=== PATIENT | male | born 1980 | race Caucasian/White ===

== ENCOUNTER 2020-12-26 12:18 | Inpatient (IN) | payer OTHER, SELFPAY ==
[~2020-12-26 12:18] MED LIST: Dexamethasone 20 MG/5 ML VIAL ONE; Glycopyrrolate 0.2 MG/ML 5 ML SYRINGE ONE; Iopamidol-370 76% 500 ML 1 ML ONE; Ketorolac Tromethamine 30 MG/ML VIAL ONE; Lidocaine 1% PF 5 ML VIAL ONE; Ondansetron PF 4 MG/2 ML Vial ONE; PHENYLEPHRINE-NS 100 MCG/ML 10 ML SYRINGE ONE; PROPOFOL 200 MG/20 ML VIAL ONE; Rocuronium Bromide 10 MG/ML (10ML VIAL) ONE
[2020-12-26] MEDS ORDERED: Fentanyl 100 MCG/2 ML VIAL ONE ×2 (12:27→22:44)
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
[2020-12-26] MEDS ORDERED: Boostrix 0.5 ML (Tdap) VIAL ONE (13:08)
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
[2020-12-26 13:50] LABS: Hemoglobin 11.7 g/dL (14.0-18.0); Mean Corpuscular HGB CONC 33.7 g/dL (32.0-36.0); Mean Corpuscular Hemoglobin 31.5 pg (27.0-31.0); Mean Corpuscular Volume 93.4 fL (78.0-98.0); Platelet Count 396 thou/uL (130-400); RBC Distribution Width 12.4 % (11.5-14.5); Red Blood Cell (RBC) Count 3.72 mill/uL (4.70-6.10)
[2020-12-26 13:55] LABS: INR-International Normal Ratio 1.2; PTT 23.3 sec (22.9-36.1); Prothrombin Time 15.8 sec (12.0-14.7)
[2020-12-26] MEDS ORDERED: Dextrose 50% Abboject 50 ML SYRINGE SLOW IVP PRN (13:59)
[2020-12-26] MEDS ORDERED: Ondansetron PF 4 MG/2 ML Vial IVP PRN (13:59)
[2020-12-26] MEDS ORDERED: Dextrose 5% in Water 1,000 ML IV PRN (13:59)
[2020-12-26] MEDS ORDERED: Sodium Chloride 0.9% 1,000 ML IV SCH (14:00)
[2020-12-26] MEDS ORDERED: traMADol HCl 50 MG TAB PO PRN ×2 (14:01)
[2020-12-26] MEDS ORDERED: Ketorolac Tromethamine 30 MG/ML VIAL ONE (14:06)
[2020-12-26 14:08] LABS: Band 38 % (5-11); Lymphocytes 2 % (21-51); MDiff Complete? YES; Metamyelocyte 1 % (0-0); Monocytes 7 % (0-10); Neutrophil 49 % (42-75); Platelet Morphology Comment Appears Adequate; RBC Morphology Normal; Reactive Lymphocytes 3 % (0-10)
[2020-12-26 14:12] LABS: Lactic Acid 1.1 mmol/L (0.5-2.2)
[2020-12-26 14:15] LABS: ALT (SGPT) 395 U/L (8-55); AST (SGOT) 377 U/L (5-34); Albumin 3.6 g/dL (3.5-5.0); Alkaline Phosphatase 63 U/L (40-110); Anion Gap 13 mmol/L (10-20); BUN (Urea Nitrogen) 17 mg/dL (8.9-20.6); Bilirubin, Total 0.7 mg/dL (0.2-1.2); Calc. Creatinine Clearance 0 mL/min (70-130); Calcium 7.7 mg/dL (7.8-10.44); Carbon Dioxide 21 mmol/L (22-29); Chloride 108 mmol/L (98-107); Globulin 2.2 g/dL (2.4-3.5); Glucose 125 mg/dL (70-105); Magnesium 1.8 mg/dL (1.6-2.6); Phosphorus 3.4 mg/dL (2.3-4.7); Potassium 3.6 mmol/L (3.5-5.1); Protein, Total 5.8 g/dL (6.0-8.3); Sodium 138 mmol/L (136-145)
[2020-12-26 14:22] LABS: Bacteria/HPF None Seen HPF (None Seen); Bilirubin Negative (Negative); Blood, Urine 2+ (Negative); Clarity Clear (Clear); Glucose, Urine (Dipstick) Normal (Negative); Ketone, Urine Negative (Negative); Leukocyte Negative Leu/uL (Negative); Nitrite Negative (Negative); Protein, Urine (Dipstick) 30 mg/dL (Neg-Trace); Specific Gravity, Urine 1.029 (1.002-1.036); Squamous Epithelial 0-3 HPF (0-3); Urobilinogen Normal mg/dL (Less than 2); WBC/HPF 0-3 HPF (0-3); pH, Urine 5.5 (5.0-9.0)
[2020-12-26 14:23] LABS: Sperm/HPF Rare HPF (None Seen)
[2020-12-26 14:47] LABS: Amphetamine Detected (NotDetected); Barbiturates Screen Not Detected (NotDetected); Benzodiazepine Screen Not Detected (NotDetected); Cocaine Metabolite Screen Not Detected (NotDetected); Medtox Control Line Valid? VALID (VALID); Medtox Reader # READER 4; Methadone Not Detected (NotDetected); Methamphetamine Detected (NotDetected); Opiate Screen Not Detected (NotDetected); Oxycodone Screen Not Detected (NotDetected); Phencyclidine (PCP) Not Detected (NotDetected); THC/Cannabinoid Screen Not Detected (NotDetected); Tricyclic Screen Not Detected (NotDetected)
[2020-12-26] MEDS ORDERED: Magnesium 2 GM/50 ML 2 GM in Premix Bag 1 BAG IVPB SCH (15:00)
[2020-12-26] MEDS ORDERED: Potassium Phosphate 15 MMOL in Sodium Chloride 0.9% 250 ML 250 ML IVPB SCH (15:00)
[2020-12-26 16:35] LABS: SARS-CoV-2 NAA Rapid Test Not Detected (NotDetected)
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
[2020-12-26] MEDS: Gabapentin 300 MG CAP PO SCH ×2 (17:42→19:52)
[2020-12-26 18:02] VITALS: BMI 32.1
[2020-12-26] MEDS: Acetaminophen 500 MG TAB PO SCH ×2 (18:54→23:06)
[2020-12-26] MEDS: Famotidine/PF 20 mg/2ml Vial SLOW IVP SCH (19:52)
[2020-12-26] MEDS: Senokot S 8.6-50 MG TAB PO SCH (19:52)
[2020-12-26] MEDS: Morphine 4 MG/ML VIAL SLOW IVP PRN (20:06)
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
[2020-12-27] MEDS ORDERED: CEFAZOLIN 2 GM in Premix Bag 1 BAG IVPB SCH ×2 (02:30→04:00)
[2020-12-27] MEDS ORDERED: Promethazine HCl 25 MG/ML VIAL SLOW IVP PRN (02:42)
[2020-12-27] MEDS ORDERED: Ondansetron HCl/PF 4 MG/2 ML Vial IVP PRN (02:42)
[2020-12-27] MEDS ORDERED: Promethazine HCl 25 MG/ML VIAL IM PRN (02:42)
[2020-12-27] MEDS ORDERED: Fentanyl 100 MCG/2 ML VIAL ONE ×2 (02:50→03:12)
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
[2020-12-27] MEDS: Acetaminophen 500 MG TAB PO SCH ×4 (05:26→23:20)
[2020-12-27] MEDS: Morphine 4 MG/ML VIAL SLOW IVP PRN (05:40)
[2020-12-27 05:47] LABS: #Lymphocytes 0.8 thou/uL (1.20-3.40); #Monocytes 1.1 thou/uL (0.11-0.59); #Neutrophils 15.4 thou/uL (1.40-6.50); %Eosinophils 0.1 % (0.0-10.0); %Lymphocytes 4.8 % (21.0-51.0); %Monocytes 6.1 % (0.0-10.0); Hemoglobin 10.2 g/dL (14.0-18.0); Mean Corpuscular Hemoglobin 31.1 pg (27.0-31.0); Mean Corpuscular Volume 94.4 fL (78.0-98.0); Platelet Count 400 thou/uL (130-400); RBC Distribution Width 12.5 % (11.5-14.5); Red Blood Cell (RBC) Count 3.27 mill/uL (4.70-6.10); White Blood Cell (WBC) Count 17.3 thou/uL (4.8-10.8)
[2020-12-27 06:11] LABS: Anion Gap 11 mmol/L (10-20); BUN (Urea Nitrogen) 24 mg/dL (8.9-20.6); Calc. Creatinine Clearance 159 mL/min (70-130); Calcium 7.8 mg/dL (7.8-10.44); Carbon Dioxide 24 mmol/L (22-29); Chloride 110 mmol/L (98-107); Glucose 145 mg/dL (70-105); Magnesium 2.2 mg/dL (1.6-2.6); Phosphorus 4.3 mg/dL (2.3-4.7); Potassium 4.7 mmol/L (3.5-5.1); Sodium 140 mmol/L (136-145)
--- NOTE | 2020-12-27 09:11 | RAD ---
SIX FLUOROSCOPIC SPOT IMAGES OF THE LEFT KNEE: INDICATION: Operative fixation of the comminuted femoral shaft and distal femoral fracture. COMPARISON: Prior exam dated 12/26/2020. IMPRESSION: There has been interval placement of a long intramedullary iza fixating the patient's femoral shaft, distal femoral metaphyseal region and intercondylar fractures. Fracture alignment is near anatomic. The instrumentation projects in the expected position. Fluoroscopic time was 165.1 seconds. Total exposure was 16.65 mGy. POS: [facility]
--- NOTE | 2020-12-27 09:14 | RAD ---
LEFT ELBOW 2 VIEWS: INDICATION: Operative fixation of a left elbow fracture. FINDINGS: The exam is compared to a prior dated 12/26/2020. IMPRESSION: Since the comparison exam, there has been operative fixation of the distal humeral and comminuted ole cranon fractures. Fracture alignment is near anatomic. Fluoroscopic time is 7 seconds. Total expos ure was 0.25 mGy. POS: [facility]
[2020-12-27] MEDS: Enoxaparin Sodium 30 MG/0.3 ML SYRINGE SC SCH ×2 (09:38→20:01)
[2020-12-27] MEDS: CEFAZOLIN 2 GM in Premix Bag 1 BAG IVPB SCH ×2 (09:38→18:29)
[2020-12-27] MEDS: Famotidine/PF 20 mg/2ml Vial SLOW IVP SCH ×2 (09:39→20:01)
[2020-12-27] MEDS: Polyethylene Glycol 3350 17 GM Packet PO SCH (09:40)
[2020-12-27] MEDS: Senokot S 8.6-50 MG TAB PO SCH ×2 (09:40→20:01)
[2020-12-27] MEDS: Gabapentin 300 MG CAP PO SCH ×3 (10:03→20:00)
[2020-12-27] MEDS ORDERED: traMADol HCl 50 MG TAB PO SCH ×2 (11:00→12:00)
[2020-12-27] MEDS: traMADol HCl 50 MG TAB PO SCH ×2 (15:57→23:20)
[2020-12-27] MEDS ORDERED: FLU VACC QS2020-21(6MOS UP)/PF 60 MCG/0.5 ML SYRINGE IM ONE (18:15)
[2020-12-28] MEDS: CEFAZOLIN 2 GM in Premix Bag 1 BAG IVPB SCH ×3 (03:17→18:15)
[2020-12-28] MEDS: traMADol HCl 50 MG TAB PO SCH ×4 (03:17→21:53)
[2020-12-28 05:17] LABS: #Eosinphils 0.1 thou/uL (0.0-0.7); #Lymphocytes 1.6 thou/uL (1.20-3.40); #Monocytes 2.1 thou/uL (0.11-0.59); #Neutrophils 12.4 thou/uL (1.40-6.50); %Eosinophils 0.5 % (0.0-10.0); %Neutrophils 76.6 % (42.0-75.0); Hemoglobin 8.7 g/dL (14.0-18.0); Mean Corpuscular HGB CONC 33.7 g/dL (32.0-36.0); Mean Corpuscular Volume 95.2 fL (78.0-98.0); Mean Platelet Volume 6.9 fL (7.4-10.4); Platelet Count 328 thou/uL (130-400); RBC Distribution Width 12.5 % (11.5-14.5); Red Blood Cell (RBC) Count 2.72 mill/uL (4.70-6.10); White Blood Cell (WBC) Count 16.2 thou/uL (4.8-10.8)
[2020-12-28] MEDS: Acetaminophen 500 MG TAB PO SCH ×3 (05:31→18:15)
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
[2020-12-28] MEDS: Enoxaparin Sodium 30 MG/0.3 ML SYRINGE SC SCH ×2 (09:14→21:53)
[2020-12-28] MEDS: Polyethylene Glycol 3350 17 GM Packet PO SCH (09:14)
[2020-12-28] MEDS: Senokot S 8.6-50 MG TAB PO SCH ×2 (09:14→21:54)
[2020-12-28] MEDS: Gabapentin 300 MG CAP PO SCH ×3 (09:35→21:54)
[2020-12-28] MEDS: Famotidine 20 MG TAB PO SCH ×2 (09:35→21:54)
[2020-12-28] MEDS: Cyclobenzaprine 10 MG TAB PO PRN (09:51)
[2020-12-28] MEDS ORDERED: PROPOFOL 200 MG/20 ML VIAL ONE (10:53)
[2020-12-28] MEDS ORDERED: Esmolol 100 MG/10 ML VIAL ONE (10:53)
[2020-12-28] MEDS ORDERED: Dexamethasone 20 MG/5 ML VIAL ONE (10:53)
[2020-12-28] MEDS ORDERED: Bupivacaine HCl 0.5%/Epinephrine 1:200,000/PF 30 ml Vial ONE (10:53)
[2020-12-28] MEDS ORDERED: Ondansetron PF 4 MG/2 ML Vial ONE (10:53)
[2020-12-28] MEDS ORDERED: Lidocaine 1% PF 5 ML VIAL ONE (10:53)
[2020-12-28] MEDS ORDERED: Bacitracin Zinc Ointment 30 gm TUBE ONE (13:41)
[2020-12-28] MEDS ORDERED: Sodium Chloride 0.9% 10 ML ONE (13:41)
[2020-12-28] MEDS ORDERED: Bupivacaine PF 0.5% 30 ML VIAL ONE (13:41)
--- NOTE | 2020-12-28 17:27 | RAD ---
Exam: XR Wrist 3 Rt View STANDARD HISTORY: ORIF right wrist COMPARISON: 12/26/2020 FINDINGS/IMPRESSION: 6 intraoperative fluoroscopic images of the right wrist are submitted. Images demonstrate postoperati ve changes related to internal fixation of the comminuted fracture distal right radial metaphysis with intra-articular extension. A volar plate and multiple screws now transfix the fracture. There ar e also several metallic pins transfixing the fracture of the distal right radius. There is improvement in alignment of fracture fragments. Fracture ulnar styloid process is again present. Raina elation with intraoperative findings is recommended. Fluoroscopy: Time-1 minute 37 seconds Dose-0.254 Gy centimeter squared
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
[2020-12-28] MEDS ORDERED: CEFAZOLIN 1 GM VIAL ONE (18:22)
[2020-12-28] MEDS: traMADol HCl 50 MG TAB PO PRN (19:24)
[2020-12-28] MEDS ORDERED: Morphine 4 MG/ML VIAL IV PRN (19:44)
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
[2020-12-29] MEDS: Acetaminophen 500 MG TAB PO SCH ×4 (00:16→18:23)
[2020-12-29] MEDS: CEFAZOLIN 2 GM in Premix Bag 1 BAG IVPB SCH (01:27)
[2020-12-29] MEDS: traMADol HCl 50 MG TAB PO SCH ×4 (05:43→20:59)
--- NOTE | 2020-12-29 07:59 | PRG ---
DATE OF SERVICE: 12/28/2020 SUBJECTIVE: Kiko is a 40-year-old male postop day 2 from an open reduction and internal fixation of the left femoral shaft and open reduction and internal fixation of left elbow and supracondylar fracture. His pain is controlled. He is doing relatively well. OBJECTIVE: VITAL SIGNS: Temperature 98, pulse 108, respiratory rate 20 and unlabored, O2 saturation is 93% on room air, blood pressure 160/79. GENERAL: He is alert, responsive, somnolent at first, but awakens and arouses easily, nonfocal. EXTREMITIES: Neurovascular status is good. Capillary refill being brisk in the left upper extremity and left foot. IMPRESSION: 40-year-old male, postop day 2, left femoral nail and left elbow open reduction and internal fixation. PLAN: Continue current care. DISPOSITION: Per Trauma Team. Job ID: [id number]
[2020-12-29] MEDS ORDERED: Metoprolol Tartrate 100 MG TAB PO SCH (08:30)
[2020-12-29] MEDS: Polyethylene Glycol 3350 17 GM Packet PO SCH (08:33)
[2020-12-29] MEDS: Senokot S 8.6-50 MG TAB PO SCH ×2 (08:33→20:58)
[2020-12-29] MEDS: Cyclobenzaprine 10 MG TAB PO PRN (08:33)
[2020-12-29] MEDS: Famotidine 20 MG TAB PO SCH ×2 (08:33→20:58)
[2020-12-29] MEDS: traMADol HCl 50 MG TAB PO PRN ×2 (08:34→15:00)
[2020-12-29] MEDS: Gabapentin 300 MG CAP PO SCH ×3 (08:34→20:58)
[2020-12-29] MEDS: Enoxaparin Sodium 30 MG/0.3 ML SYRINGE SC SCH ×2 (08:35→20:58)
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
[2020-12-29] MEDS: Lisinopril 10 MG TAB PO SCH (10:33)
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
[2020-12-30] MEDS: Acetaminophen 500 MG TAB PO SCH ×5 (00:24→23:19)
[2020-12-30] MEDS: traMADol HCl 50 MG TAB PO SCH ×5 (03:53→21:15)
[2020-12-30] MEDS: traMADol HCl 50 MG TAB PO PRN (04:23)
[2020-12-30] MEDS: Lisinopril 10 MG TAB PO SCH (09:40)
[2020-12-30] MEDS: Senokot S 8.6-50 MG TAB PO SCH ×2 (09:40→21:11)
[2020-12-30] MEDS: Polyethylene Glycol 3350 17 GM Packet PO SCH (09:40)
[2020-12-30] MEDS: Enoxaparin Sodium 30 MG/0.3 ML SYRINGE SC SCH ×2 (09:40→21:10)
[2020-12-30] MEDS: Gabapentin 300 MG CAP PO SCH ×3 (09:41→21:11)
[2020-12-30] MEDS: Ibuprofen 600 MG TAB PO SCH ×3 (12:56→23:20)
[2020-12-30] MEDS: Cyclobenzaprine 10 MG TAB PO PRN (12:56)
[2020-12-31] MEDS: Ibuprofen 600 MG TAB PO SCH ×4 (05:06→23:49)
[2020-12-31] MEDS: traMADol HCl 50 MG TAB PO SCH ×4 (05:06→22:02)
[2020-12-31] MEDS: Acetaminophen 500 MG TAB PO SCH ×4 (05:07→23:49)
[2020-12-31 05:28] LABS: #Basophils 0.1 thou/uL (0.0-0.2); #Eosinphils 0.2 thou/uL (0.0-0.7); #Lymphocytes 2.8 thou/uL (1.20-3.40); #Monocytes 1.5 thou/uL (0.11-0.59); #Neutrophils 7.5 thou/uL (1.40-6.50); %Basophils 0.6 % (0.0-1.0); %Lymphocytes 22.8 % (21.0-51.0); %Monocytes 12.7 % (0.0-10.0); %Neutrophils 61.9 % (42.0-75.0); Hemoglobin 8.3 g/dL (14.0-18.0); Mean Corpuscular HGB CONC 31.4 g/dL (32.0-36.0); Mean Corpuscular Hemoglobin 29.6 pg (27.0-31.0); Mean Corpuscular Volume 94.3 fL (78.0-98.0); Mean Platelet Volume 6.3 fL (7.4-10.4); Platelet Count 541 thou/uL (130-400); RBC Distribution Width 12.6 % (11.5-14.5); White Blood Cell (WBC) Count 12.1 thou/uL (4.8-10.8)
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
[2020-12-31 05:48] LABS: Anion Gap 14 mmol/L (10-20); BUN (Urea Nitrogen) 17 mg/dL (8.9-20.6); Calc. Creatinine Clearance 244 mL/min (70-130); Calcium 8.2 mg/dL (7.8-10.44); Carbon Dioxide 27 mmol/L (22-29); Chloride 100 mmol/L (98-107); Glucose 103 mg/dL (70-105); Magnesium 1.9 mg/dL (1.6-2.6); Phosphorus 4.7 mg/dL (2.3-4.7); Potassium 4.3 mmol/L (3.5-5.1); Sodium 137 mmol/L (136-145)
[2020-12-31] MEDS: Gabapentin 300 MG CAP PO SCH ×3 (08:23→19:57)
[2020-12-31] MEDS: Senokot S 8.6-50 MG TAB PO SCH ×2 (08:24→19:57)
[2020-12-31] MEDS: Cyclobenzaprine 10 MG TAB PO PRN (08:24)
[2020-12-31] MEDS: Lisinopril 10 MG TAB PO SCH (08:25)
[2020-12-31] MEDS: Enoxaparin Sodium 30 MG/0.3 ML SYRINGE SC SCH ×2 (08:25→19:56)
[2020-12-31] MEDS: Polyethylene Glycol 3350 17 GM Packet PO SCH (08:25)
[2020-12-31] MEDS: cloNIDine 0.1 MG TAB PO SCH ×3 (09:35→19:56)
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
[2021-01-01] MEDS: cloNIDine 0.1 MG TAB PO SCH ×4 (03:11→21:31)
[2021-01-01] MEDS: traMADol HCl 50 MG TAB PO SCH ×4 (03:11→21:33)
[2021-01-01] MEDS: Ibuprofen 600 MG TAB PO SCH ×4 (05:43→23:24)
[2021-01-01] MEDS: Acetaminophen 500 MG TAB PO SCH ×2 (05:44→11:46)
[2021-01-01] MEDS: Polyethylene Glycol 3350 17 GM Packet PO SCH (10:00)
[2021-01-01] MEDS: Enoxaparin Sodium 30 MG/0.3 ML SYRINGE SC SCH ×2 (10:00→21:33)
[2021-01-01] MEDS: Lisinopril 10 MG TAB PO SCH (10:01)
[2021-01-01] MEDS: Cyclobenzaprine 10 MG TAB PO PRN ×2 (10:01→20:11)
[2021-01-01] MEDS: Gabapentin 300 MG CAP PO SCH ×3 (10:01→21:32)
[2021-01-01] MEDS: Senokot S 8.6-50 MG TAB PO SCH ×2 (10:02→21:32)
[2021-01-01] MEDS: Acetaminophen/Codeine 30-300mg Tablet PO PRN (12:44)
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
[2021-01-01] MEDS: Acetaminophen 325 MG TAB PO SCH ×2 (18:27→23:23)
[2021-01-02] MEDS: Acetaminophen/Codeine 30-300mg Tablet PO PRN ×2 (03:03→11:47)
[2021-01-02] MEDS: cloNIDine 0.1 MG TAB PO SCH ×4 (03:03→21:27)
[2021-01-02] MEDS: traMADol HCl 50 MG TAB PO SCH ×4 (03:03→21:27)
[2021-01-02] MEDS: Acetaminophen 325 MG TAB PO SCH ×4 (05:38→18:40)
[2021-01-02] MEDS: Ibuprofen 600 MG TAB PO SCH ×3 (05:39→18:38)
[2021-01-02] MEDS: Polyethylene Glycol 3350 17 GM Packet PO SCH (08:38)
[2021-01-02] MEDS: Enoxaparin Sodium 30 MG/0.3 ML SYRINGE SC SCH ×2 (08:41→21:26)
[2021-01-02] MEDS: Lisinopril 10 MG TAB PO SCH (08:41)
[2021-01-02] MEDS: Gabapentin 300 MG CAP PO SCH ×2 (08:41→14:35)
[2021-01-02] MEDS: Senokot S 8.6-50 MG TAB PO SCH ×2 (08:42→21:26)
[2021-01-02] MEDS: Cyclobenzaprine 10 MG TAB PO PRN ×2 (08:42→18:38)
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
[2021-01-02] MEDS ORDERED: Ondansetron ODT 4 MG TAB PO PRN (12:34)
[2021-01-02] MEDS ORDERED: Morphine 2 MG/ML VIAL SLOW IVP SCH (16:45)
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
--- NOTE | 2021-01-02 17:55 | RAD ---
LEFT LEG TWO VIEWS: History: Left leg pain FINDINGS: The left tibia and fibula are intact. There are some post operative changes of fracture repair in the visualized portions of the femur. IMPRESSION: As above. POS: SAMIRA
[2021-01-02] MEDS ORDERED: Morphine 2 MG/ML VIAL IM SCH (19:30)
[2021-01-02] MEDS: Pregabalin 50 MG CAP PO SCH (21:27)
[2021-01-03] MEDS: Cyclobenzaprine 10 MG TAB PO PRN ×2 (02:22→23:33)
[2021-01-03] MEDS: Acetaminophen/Codeine 30-300mg Tablet PO PRN ×3 (05:15→23:34)
[2021-01-03] MEDS: traMADol HCl 50 MG TAB PO SCH ×4 (05:15→21:48)
[2021-01-03] MEDS: Acetaminophen 325 MG TAB PO SCH ×5 (05:15→23:27)
[2021-01-03] MEDS: Ibuprofen 600 MG TAB PO SCH ×5 (05:15→23:33)
[2021-01-03] MEDS: cloNIDine 0.1 MG TAB PO SCH ×4 (05:18→20:09)
[2021-01-03] MEDS: Polyethylene Glycol 3350 17 GM Packet PO SCH (09:31)
[2021-01-03] MEDS: Enoxaparin Sodium 30 MG/0.3 ML SYRINGE SC SCH ×2 (09:32→20:08)
[2021-01-03] MEDS: Pregabalin 50 MG CAP PO SCH ×2 (09:32→20:08)
[2021-01-03] MEDS: Senokot S 8.6-50 MG TAB PO SCH ×2 (09:32→20:09)
[2021-01-03] MEDS: Lisinopril 10 MG TAB PO SCH (09:33)
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
[2021-01-04] MEDS: cloNIDine 0.1 MG TAB PO SCH ×3 (03:27→14:13)
[2021-01-04] MEDS: traMADol HCl 50 MG TAB PO SCH ×3 (03:28→15:01)
[2021-01-04] MEDS: Acetaminophen 325 MG TAB PO SCH ×2 (05:02→12:18)
[2021-01-04] MEDS: Acetaminophen/Codeine 30-300mg Tablet PO PRN ×2 (05:03→12:19)
[2021-01-04] MEDS: Ibuprofen 600 MG TAB PO SCH ×2 (05:03→12:18)
[2021-01-04] MEDS: Senokot S 8.6-50 MG TAB PO SCH (09:07)
[2021-01-04] MEDS: Lisinopril 10 MG TAB PO SCH (09:07)
[2021-01-04] MEDS: Pregabalin 50 MG CAP PO SCH (09:07)
[2021-01-04] MEDS: Polyethylene Glycol 3350 17 GM Packet PO SCH (09:07)
[2021-01-04] MEDS: Enoxaparin Sodium 30 MG/0.3 ML SYRINGE SC SCH (09:07)
[2021-01-04 11:57] VITALS: BP 153/68; TEMP 97.1
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
== END 2021-01-04 16:18 | disposition home or self-care (01) | DRG 956 ==
LOC: EDBD 12:18 → ERS 12:18 → SURG B 14:02
PROVIDERS: ADMIT Surgery; ATTEND Surgery
PROC: 3E0234Z Introduction of Serum, Toxoid and Vaccine into Muscle, Percutaneous Approach (ICD-10-PCS; 2020-12-26)
PROC: 0QSC06Z Reposition Left Lower Femur with Intramedullary Internal Fixation Device, Open Approach (ICD-10-PCS; principal; 2020-12-27)
PROC: 0PSG04Z Reposition Left Humeral Shaft with Internal Fixation Device, Open Approach (ICD-10-PCS; 2020-12-27)
PROC: 0PSL04Z Reposition Left Ulna with Internal Fixation Device, Open Approach (ICD-10-PCS; 2020-12-27)
PROC: 01Q50ZZ Repair Median Nerve, Open Approach (ICD-10-PCS; 2020-12-28)
PROC: 0PSH04Z Reposition Right Radius with Internal Fixation Device, Open Approach (ICD-10-PCS; 2020-12-28)
PROC: 0RBL0ZZ Excision of Right Elbow Joint, Open Approach (ICD-10-PCS; 2020-12-28)
DX: S72.492A Other fracture of lower end of left femur, initial encounter for closed fracture (principal); S42.452B Displaced fracture of lateral condyle of left humerus, initial encounter for open fracture; Z23 Encounter for immunization; Z20.822 Contact with and (suspected) exposure to COVID-19; S52.022B Displaced fracture of olecranon process without intraarticular extension of left ulna, initial encounter for open fracture type I or II; S52.611A Displaced fracture of right ulna styloid process, initial encounter for closed fracture; S22.43XA Multiple fractures of ribs, bilateral, initial encounter for closed fracture; S52.501A Unspecified fracture of the lower end of right radius, initial encounter for closed fracture; J93.11 Primary spontaneous pneumothorax; D62 Acute posthemorrhagic anemia; F17.210 Nicotine dependence, cigarettes, uncomplicated; I10 Essential (primary) hypertension; S72.002A Fracture of unspecified part of neck of left femur, initial encounter for closed fracture; S44.11XA Injury of median nerve at upper arm level, right arm, initial encounter; V43.52XA Car driver injured in collision with other type car in traffic accident, initial encounter
CPT/HCPCS: 36415; 51702; 70450; 71045; 71260; 72125; 72170; 74177; 76000; 80048; 80053; 80306; 80307; 81003; 81015; 83605; 83735; 84100; 85025; 85610; 85730; 90471; 90715; 94640; 96365; 96375; C1713; G0390; J0690; J1100; J1650; J1885; J2270; J2405; J2704; J3010; J3475; J3490; J7050; J7620; Q9967; S0020; S0028; U0002